=== PATIENT | female | born 1955 | race Caucasian/White ===

== ENCOUNTER → 2021-12-15 | Outpatient (CLI) | payer MEDICARE ==
[~2021-12-15] MED LIST: ASPI81TA26 PO; ASPI81TA86 PO; CALC600T60 PO; CETI-24 PO; FLAX10002 PO; KP F1200 PO; MELA10TA2 PO; POTA99TA14 PO; ROSU5TAB5 PO; VITA100093 PO; VITA40TA PO; VITATAB73 PO; [UNRECOGNIZED DRUG - CODE] SQ
== END ==
LOC: M LABSMTC 09:18
PROVIDERS: ATTEND Anesthesiology
DX: Z01.818 Encounter for other preprocedural examination (principal); Z11.52 Encounter for screening for COVID-19

== ENCOUNTER 2021-12-20 09:41 | Day surgery (SDC) | payer MEDICARE ==
[~2021-12-20] VITALS: Ht 154.9 cm; Wt 86.6 kg
[~2021-12-20 09:41] MED LIST changes: +LIDOCAINE 1% SDV 5ML VIAL As Ordered ONE; +LR 1,000 ML IV SCH; +MIDAZOLAM INJ 2MG/2ML VIAL (J2250 PER 1MG) As Ordered ONE
[2021-12-20] MEDS: PHENYLEPHRINE 2.5% OPHTH SOL 2ML OS SCH ×3 (10:14→10:30)
[2021-12-20] MEDS: CYCLOPENTOLATE 1% OPHTH SOLN 2 ML BTL OS SCH ×3 (10:14→10:30)
[2021-12-20] MEDS: FLURBIPROFEN 0.03% OPHTH SOLN 2.5 ML OS SCH ×3 (10:14→10:30)
[2021-12-20] MEDS: TETRACAINE 0.5% OPHTH SOLN 4ML OS SCH ×2 (10:14→10:22)
[2021-12-20 12:30] VITALS: BP 141/67
== END 2021-12-20 12:42 | disposition home or self-care (01) ==
LOC: M SDC 09:41
PROVIDERS: ATTEND Ophthalmology
DX: H25.12 Age-related nuclear cataract, left eye (principal); E78.5 Hyperlipidemia, unspecified; K76.0 Fatty (change of) liver, not elsewhere classified; K21.9 Gastro-esophageal reflux disease without esophagitis; M79.669 Pain in unspecified lower leg; L40.9 Psoriasis, unspecified; R06.83 Snoring; M81.0 Age-related osteoporosis without current pathological fracture; E55.9 Vitamin D deficiency, unspecified; Z88.0 Allergy status to penicillin; Z79.899 Other long term (current) drug therapy; Z79.82 Long term (current) use of aspirin
CPT/HCPCS: 66984; J2250; V2632

== ENCOUNTER → 2022-09-28 | Outpatient (CLI) | payer MEDICARE ==
[~2022-09-28] MED LIST changes: -LIDOCAINE 1% SDV 5ML VIAL As Ordered ONE; -LR 1,000 ML IV SCH; -MIDAZOLAM INJ 2MG/2ML VIAL (J2250 PER 1MG) As Ordered ONE
== END ==
LOC: M SLEEP HO 12:34
PROVIDERS: ATTEND Internal Medicine Cardiovascular Disease
DX: I27.20 Pulmonary hypertension, unspecified (principal); R60.0 Localized edema

== ENCOUNTER 2023-01-30 10:52 | Day surgery (SDC) | payer MEDICARE ==
[~2023-01-30] VITALS: Ht 154.9 cm; Wt 85.7 kg
[~2023-01-30 10:52] MED LIST changes: +ACETYLCHOLINE OPHTH SOLN 1% 2ML (MIOCHOL-E) As Ordered ONE; +CHLO125TA PO; +CYCLOPENTOLATE 1% OPHTH SOLN 2ML BTL OD SCH; +FLURBIPROFEN 0.03% OPHTH SOLN 2.5 ML OD SCH; +LIDOCAINE 1% SDV 5ML VIAL As Ordered ONE; +LR 1,000 ML IV SCH; +MIDAZOLAM INJ 2MG/2ML VIAL As Ordered ONE; +PHENYLEPHRINE 2.5% OPHTH SOL 2ML OD SCH; +SPIR-10 PO; +TETRACAINE 0.5% OPHTH SOLN 4ML OD SCH; +fentaNYL 100 MCG/2 ML INJECTION As Ordered ONE
[2023-01-30 13:50] VITALS: BP 169/79
== END 2023-01-30 14:28 | disposition home or self-care (01) ==
LOC: M SDC 10:52
PROVIDERS: ATTEND Ophthalmology
DX: H25.11 Age-related nuclear cataract, right eye (principal); I10 Essential (primary) hypertension; E78.5 Hyperlipidemia, unspecified; R00.2 Palpitations; K76.0 Fatty (change of) liver, not elsewhere classified; L40.9 Psoriasis, unspecified; R06.83 Snoring; Z88.0 Allergy status to penicillin; Z79.02 Long term (current) use of antithrombotics/antiplatelets; Z79.52 Long term (current) use of systemic steroids; Z79.82 Long term (current) use of aspirin; Z79.899 Other long term (current) drug therapy
CPT/HCPCS: 66984; J2250; J3010; V2632

== ENCOUNTER → 2024-08-01 | Outpatient (CLI) | payer MEDICARE ==
[~2024-08-01] MED LIST changes: -ACETYLCHOLINE OPHTH SOLN 1% 2ML (MIOCHOL-E) As Ordered ONE; -CYCLOPENTOLATE 1% OPHTH SOLN 2ML BTL OD SCH; -FLURBIPROFEN 0.03% OPHTH SOLN 2.5 ML OD SCH; -LIDOCAINE 1% SDV 5ML VIAL As Ordered ONE; -LR 1,000 ML IV SCH; -MIDAZOLAM INJ 2MG/2ML VIAL As Ordered ONE; -PHENYLEPHRINE 2.5% OPHTH SOL 2ML OD SCH; +ROSU5TAB40 PO; -ROSU5TAB5 PO; -TETRACAINE 0.5% OPHTH SOLN 4ML OD SCH; -fentaNYL 100 MCG/2 ML INJECTION As Ordered ONE
== END ==
LOC: M RAD 08:47
PROVIDERS: ATTEND Internal Medicine Nephrology
DX: N18.31 Chronic kidney disease, stage 3a (principal); N17.9 Acute kidney failure, unspecified; I12.9 Hypertensive chronic kidney disease with stage 1 through stage 4 chronic kidney disease, or unspecified chronic kidney disease

== ENCOUNTER → 2024-08-20 | Outpatient (CLI) | payer MEDICARE ==
[~2024-08-20] MED LIST changes: +ISOVUE-370 76% 100ML VIAL ONE; -ROSU5TAB40 PO; +ROSU5TAB49 PO
== END ==
LOC: M PLAIMG 08:14
PROVIDERS: ATTEND Internal Medicine Nephrology
DX: N17.9 Acute kidney failure, unspecified (principal); I10 Essential (primary) hypertension
CPT/HCPCS: 74174; Q9967

== ENCOUNTER → 2024-11-19 | Outpatient (CLI) | payer MEDICARE ==
[~2024-11-19] MED LIST changes: +CLOP75TA2 PO; -ISOVUE-370 76% 100ML VIAL ONE; +ONDA-282 PO; +PERC5TAB12 PO
[2024-11-19 07:20] LABS: HEMATOCRIT 41.7 % (36.0-47.0); MEAN CORPUSCULAR HEMOGLOBIN 31.9 pg (27.0-33.0); MEAN CORPUSCULAR HGB CONC 33.6 g/dl (32.0-36.5); PLATELET COUNT, AUTOMATED 272 10^3/uL (150-450); RED BLOOD COUNT 4.39 10^6/uL (4.00-5.40); WHITE BLOOD COUNT 9.9 10^3/uL (4.0-10.0)
[2024-11-19 07:30] LABS: INR 0.9; PROTHROMBIN TIME 12.4 SECONDS (12.5-14.5)
[2024-11-19 08:14] LABS: CALCIUM LEVEL 9.9 MG/DL (8.3-10.6); CREATININE FOR GFR 1.14 MG/DL (0.55-1.30); POTASSIUM SERUM 4.4 MMOL/L (3.5-5.1)
== END ==
LOC: M LAB 06:46
PROVIDERS: ATTEND Radiology Diagnostic Radiology
DX: N18.9 Chronic kidney disease, unspecified (principal); I70.1 Atherosclerosis of renal artery

== ENCOUNTER → 2024-11-19 | Outpatient (CLI) | payer MEDICARE ==
[~2024-11-19] VITALS: Ht 154.9 cm; Wt 85.5 kg
[~2024-11-19] MED LIST changes: +ACETAMINOPHEN 325 MG TAB PO PRN; +HEPARIN 1,000UNITS/ML 10ML VIAL (FOR RADIOLOGY & DIALYSIS ONLY) As Ordered ONE; +HEPARIN SOD (PORCINE) 5000UNITS/ML 1ML VIAL/SYRINGE IV ONE; +ISOVUE-300 61% 100ML VIAL As Ordered ONE; +LIDOCAINE 1% MDV 20ML VIAL As Ordered ONE; +MIDAZOLAM INJ 2MG/2ML VIAL As Ordered ONE; +MIDAZOLAM INJ 2MG/2ML VIAL IV ONE; +NS (Normal Saline) 0.9% 1,000 ML IV SCH; +fentaNYL 100 MCG/2 ML INJECTION As Ordered ONE; +fentaNYL 100 MCG/2 ML INJECTION IV ONE
[2024-11-19 07:15] VITALS: TEMP 97.9
[2024-11-19] MEDS: MIDAZOLAM INJ 2MG/2ML VIAL IV ONE ×2 (08:37→09:40)
[2024-11-19] MEDS: fentaNYL 100 MCG/2 ML INJECTION IV ONE ×2 (08:38→09:40)
[2024-11-19] MEDS: ISOVUE-300 61% 100ML VIAL IV ONE (10:48)
[2024-11-19] MEDS: LIDOCAINE 1% MDV 20ML VIAL XX ONE (10:48)
[2024-11-19] MEDS: CLOPIDOGREL 300 MG TAB (PLAVIX) PO STA (11:24)
[2024-11-19] MEDS: PERCOCET 5MG/325MG TAB PO PRN (12:17)
[2024-11-19] MEDS: ONDANSETRON 4MG 2ML VIAL IV PRN (12:17)
[2024-11-19 12:46] VITALS: BP 138/80
[2024-11-19 13:30] VITALS: O2SAT 97
[2024-11-19] MEDS: ONDANSETRON 4MG 2ML VIAL IV ONE (13:33)
== END ==
LOC: M IRPRO 06:40
PROVIDERS: ATTEND Internal Medicine Nephrology
DX: I12.9 Hypertensive chronic kidney disease with stage 1 through stage 4 chronic kidney disease, or unspecified chronic kidney disease (principal); N18.31 Chronic kidney disease, stage 3a; I70.1 Atherosclerosis of renal artery
CPT/HCPCS: 36415; 37236; 80048; 85027; 85610; 99152; 99153; C1725; C1769; C1876; C1887; C1894; J2250; J2405; J3010; Q9967

== ENCOUNTER → 2025-05-19 | Outpatient (CLI) | payer MEDICARE ==
[~2025-05-19] MED LIST changes: -ACETAMINOPHEN 325 MG TAB PO PRN; -HEPARIN 1,000UNITS/ML 10ML VIAL (FOR RADIOLOGY & DIALYSIS ONLY) As Ordered ONE; -HEPARIN SOD (PORCINE) 5000UNITS/ML 1ML VIAL/SYRINGE IV ONE; -ISOVUE-300 61% 100ML VIAL As Ordered ONE; -LIDOCAINE 1% MDV 20ML VIAL As Ordered ONE; +METO1TAB32 PO; -MIDAZOLAM INJ 2MG/2ML VIAL As Ordered ONE; -MIDAZOLAM INJ 2MG/2ML VIAL IV ONE; -NS (Normal Saline) 0.9% 1,000 ML IV SCH; +TRAZ-252 PO; -fentaNYL 100 MCG/2 ML INJECTION As Ordered ONE; -fentaNYL 100 MCG/2 ML INJECTION IV ONE
== END ==
LOC: M RAD 09:00
PROVIDERS: ATTEND Radiology Diagnostic Radiology
DX: I70.1 Atherosclerosis of renal artery (principal); Z95.828 Presence of other vascular implants and grafts

== ENCOUNTER → 2025-05-21 | Outpatient (POV) | payer MEDICARE ==
[~2025-05-21] VITALS: Ht 152.4 cm; Wt 84.5 kg
[2025-05-21 11:46] VITALS: BP 142/82; O2SAT 100
== END ==
LOC: M IRPOV 11:40
PROVIDERS: ATTEND Registered Nurse School
DX: Z48.812 Encounter for surgical aftercare following surgery on the circulatory system (principal); I70.1 Atherosclerosis of renal artery; Z88.0 Allergy status to penicillin; Z95.828 Presence of other vascular implants and grafts

== ENCOUNTER → 2025-08-14 | Outpatient (CLI) | payer MEDICARE ==
[~2025-08-14] MED LIST changes: +AMLO1TAB24 PO; +HYDR12.55 PO; +RISA150S2 SQ
== END ==
LOC: M RAD 07:45
PROVIDERS: ATTEND Registered Nurse School
DX: I70.1 Atherosclerosis of renal artery (principal); K76.0 Fatty (change of) liver, not elsewhere classified

== ENCOUNTER → 2025-08-20 | Outpatient (POV) | payer MEDICARE ==
[~2025-08-20] VITALS: Ht 154.9 cm; Wt 81.4 kg
[2025-08-20 09:36] VITALS: BP 133/60; O2SAT 98
== END ==
LOC: M IRPOV 09:25
PROVIDERS: ATTEND Registered Nurse School
DX: Z48.812 Encounter for surgical aftercare following surgery on the circulatory system (principal); I10 Essential (primary) hypertension; Z88.0 Allergy status to penicillin